=== PATIENT | female | born 1955 | race Caucasian/White ===

== ENCOUNTER 2019-10-01 07:50 | Emergency (ER) | payer MEDICARE, MEDICAID ==
[~2019-10-01] VITALS: Ht 157.5 cm; Wt 66.0 kg
[2019-10-01] MEDS ORDERED: CLON-457 PO (07:56)
[2019-10-01] MEDS ORDERED: LOPE1LIQ42 PO (07:56)
[2019-10-01 08:43] LABS: BASOPHILS % 0.7 % (0.0-2.0); EOSINOPHILS % 1.6 % (0.0-5.0); HEMATOCRIT. 36.7 % (36.0-48.0); HEMOGLOBIN. 12.5 g/dL (12.0-16.0); LYMPHOCYTES % 11.9 % (20.0-50.0); MEAN CORPUSCULAR HEMOGLOBIN 32.6 pg (28.0-32.0); MEAN CORPUSCULAR VOLUME 95.7 fL (81.0-99.0); MEAN PLATELET VOLUME 7.2 fl (7.4-10.4); MONOCYTES % 6.8 % (2.0-8.0); PLATELET 147 x1000/uL (130-400); RED BLOOD CELL COUNT 3.83 mill/uL (4.2-5.4); RED CELL DISTRIBUTION WIDTH 16.3 % (11.6-14.6)
[2019-10-01 08:48] LABS: CHLORIDE 101 mEq/L (98-107)
[2019-10-01 10:30] VITALS: BP 142/71
== END 2019-10-01 10:33 | disposition home or self-care (01) ==
LOC: ER 07:50
DX: R55 Syncope and collapse (principal); N18.6 End stage renal disease; I95.9 Hypotension, unspecified; Z99.2 Dependence on renal dialysis
CPT/HCPCS: 36415; 71045; 80053; 83605; 83880; 84484; 85025; 85379; 93005; 99285

== ENCOUNTER 2021-06-18 12:52 | Emergency (ER) | payer MEDICARE, MEDICAID ==
[~2021-06-18] VITALS: Ht 152.4 cm; Wt 62.0 kg
[~2021-06-18 12:52] MED LIST: CALC-1139 MT; CLON-457 PO; FERR-71 MT; LOPE1LIQ42 PO
[2021-06-18 13:36] LABS: EOSINOPHILS % 1.5 % (0.0-5.0); HEMATOCRIT. 28.6 % (36.0-48.0); HEMOGLOBIN. 9.9 g/dL (12.0-16.0); LYMPHOCYTES % 8.7 % (20.0-50.0); MEAN CORPUSCULAR HEMOGLOBIN 33.6 pg (28.0-32.0); MONOCYTES % 8.5 % (2.0-8.0); NEUTROPHILS % 80.3 % (40.0-76.0); PLATELET 137 x1000/uL (130-400); RED BLOOD CELL COUNT 2.95 mill/uL (4.2-5.4); RED CELL DISTRIBUTION WIDTH 16.6 % (11.6-14.6)
[2021-06-18] MEDS ORDERED: DEXTROSE 50% WATER 50ML SYRINGE IV ONE (14:30)
[2021-06-18] MEDS ORDERED: SODIUM BICARBONATE 8.4% 1 MEQ/ML 50ML SYR IV ONE (14:30)
[2021-06-18] MEDS ORDERED: ALBUTEROL (0.083%) 2.5MG/3ML NEB HHN ONE (14:30)
[2021-06-18] MEDS ORDERED: INSULIN REGULAR (HUMULIN R) 300UNITS/3ML VIAL IV ONE (14:30)
[2021-06-18] MEDS ORDERED: CALCIUM GLUCONATE 100MG/ML 10ML VIAL IV ONE (14:30)
[2021-06-18 17:18] LABS: HEPATITIS B SURFACE ANTIGEN NEGATIVE
[2021-06-18 18:55] VITALS: BP 133/50
== END 2021-06-18 21:50 | disposition left against medical advice (07) ==
LOC: ER 12:52 → CANBEDREQ 06-19 07:41
DX: E87.5 Hyperkalemia (principal); J90 Pleural effusion, not elsewhere classified; Z20.822 Contact with and (suspected) exposure to COVID-19; R03.0 Elevated blood-pressure reading, without diagnosis of hypertension; N18.6 End stage renal disease; Z99.2 Dependence on renal dialysis; Z91.15 Patient's noncompliance with renal dialysis
CPT/HCPCS: 36415; 71045; 80048; 85025; 86705; 86709; 86803; 87340; 87426; 93005; 94644; 96374; 96375; 99291; J0610; J1815; J3490

== ENCOUNTER 2023-02-10 14:05 | Inpatient (IN) | payer BC, MEDICAID, MEDICARE ==
[2023-02-10] VITALS (8 sets, daily range): BP systolic 130–158; BP diastolic 64–78; PULSE 57–69; RESP 14–23; TEMP 96
[~2023-02-10] VITALS: Ht 157.6 cm; Wt 65.0 kg
[~2023-02-10 14:05] MED LIST changes: -CLON-457 PO; +CLON-493 PO
[2023-02-10 15:25] LABS: BASOPHILS % 1.3 % (0.0-2.0); EOSINOPHILS % 1.3 % (0.0-5.0); HEMATOCRIT. 29.6 % (36.0-48.0); HEMOGLOBIN. 9.8 g/dL (12.0-16.0); LYMPHOCYTES % 11.1 % (20.0-50.0); MEAN CORPUSCULAR HEMOGLOBIN 31.5 pg (28.0-32.0); MEAN CORPUSCULAR VOLUME 95.3 fL (81.0-99.0); MEAN PLATELET VOLUME 8.7 fl (7.4-10.4); MONOCYTES % 9.4 % (2.0-8.0); NEUTROPHILS % 76.9 % (40.0-76.0); PLATELET 93 x1000/uL (130-400); RED BLOOD CELL COUNT 3.11 mill/uL (4.2-5.4); RED CELL DISTRIBUTION WIDTH 16.9 % (11.6-14.6); WHITE BLOOD COUNT 3.5 x1000/uL (4.5-11.0)
[2023-02-10 15:32] LABS: CHLORIDE 96 mEq/L (98-107); INDEX HEMOLYSI 1 (1-3); INDEX ICTERIC 1 (1-4); INDEX LIPEMIC 1 (1-3); POTASSIUM 3.8 mEq/L (3.5-5.1); SODIUM 134 mEq/L (136-145)
[2023-02-10 15:44] LABS: ALANINE AMINOTRANSFERASE 38 IU/L (13-61); ALBUMIN 2.8 g/dL (3.4-5.0); ASPARTATE AMINOTRANSFERASE 25 IU/L (15-37); BILIRUBIN TOTAL 0.9 mg/dL (0.1-1.0); CALCIUM 8.8 mg/dL (8.5-10.1); CARBON DIOXIDE 31 mEq/L (21-32); CREATININE 2.6 mg/dL (0.6-1.3); GLUCOSE 177 mg/dL (70-105); TROPONIN I HIGH SENSITIVITY 52 ng/L (<54); UREA NITROGEN BLOOD 25 mg/dL (7-21)
[2023-02-10] MEDS ORDERED: DEXAMETHASONE 4MG/ML 1ML VIAL IV ONE (19:45)
[2023-02-10] MEDS ORDERED: LEVETIRACETAM 1000MG PREMIX 100 ML IV ONE (19:45)
[2023-02-10] MEDS ORDERED: NICARDIPINE 40MG/200ML PREMIX 200 ML IV PRN (19:45)
[2023-02-10] MEDS ORDERED: HYDRALAZINE 20MG/ML VIAL IV ONE (19:45)
[2023-02-10] MEDS ORDERED: SUCCINYLCHOLINE CHLORIDE 200MG/10ML IV ONE (19:45)
[2023-02-10] MEDS ORDERED: ETOMIDATE 2MG/ML 10ML VIAL IV ONE (19:45)
[2023-02-10] MEDS ORDERED: LIDOCAINE HCL 1%/EPI 1:200,000 30 ML VIAL ONE (19:53)
[2023-02-10] MEDS ORDERED: BACITRACIN 14GM TUBE TOP ONE (19:53)
[2023-02-10] MEDS ORDERED: THROMBIN (BOVINE) 5000 UNITS/VIAL TOP ONE (19:53)
[2023-02-10] MEDS ORDERED: PROPOFOL 200MG/20ML VIAL IV ONE (21:51)
[2023-02-10] MEDS ORDERED: DEXT 5%/LACTATED RINGERS 1,000 ML IV SCH (22:45)
[2023-02-10] MEDS ORDERED: MORPHINE SULFATE 4 MG/ML CPJ (NOT FOR IM USE) IV PRN (22:45)
[2023-02-10] MEDS ORDERED: ONDANSETRON HCL 4MG/2ML INJ IV PRN (23:00)
[2023-02-10] MEDS ORDERED: NALOXONE HCL 0.4MG/ML VIAL IV PRN (23:00)
[2023-02-10] MEDS ORDERED: CLONIDINE 0.1MG TABLET PO PRN (23:00)
[2023-02-10] MEDS ORDERED: ACETAMINOPHEN 650MG/20.3ML UDC NG PRN (23:00)
[2023-02-10] MEDS ORDERED: IPRATROPIUM/ALBUTEROL 0.5-3(2.5)MG/3ML NEB HHN PRN (23:00)
[2023-02-10] MEDS ORDERED: PROPOFOL 10MG/ML 100ML 100 ML IV PRN (23:45)
[2023-02-10 23:55] LABS: BG BASE EXCESS 4.9 mmol/L (-2.0-2.0); BG CARBOXYHEMOGLOBIN 0.3 % (0.5-1.5); BG DEOXYHEMOGLOBIN 0.7 % (0.0-5.0); BG FRACTION INSPIRED OXYGEN 100; BG HCO3 ACT 25.8 mmol/L (22.0-26.0); BG METHEMOGLOBIN 0.1 % (0.0-1.5); BG OXYGEN SATURATION 99.3 % (92.0-98.5); BG OXYHEMOGLOBIN 98.9 % (94.0-97.0); BG PCO2 25.9 mmHg (35.0-45.0); BG PH 7.616 (7.350-7.450); BG PO2 387.2 mmHg (75.0-100.0); BG SAMPLE SITE RIGHT RADIAL; BG VENT MODE VENT - AC
[2023-02-11] VITALS (72 sets, daily range): BP systolic 88–157; BP diastolic 45–75; PULSE 48–66; RESP 4–27; TEMP 93.7–97.8; O2SAT 98
[2023-02-11] MEDS ORDERED: CEFAZOLIN 1000MG PREMIX 50 ML IV SCH ×2
[2023-02-11] MEDS: NICARDIPINE 100 MG in SODIUM CHLORIDE 0.9% 60 ML IV PRN (00:03)
[2023-02-11 02:29] LABS: BG BASE EXCESS 2.2 mmol/L (-2.0-2.0); BG CARBOXYHEMOGLOBIN 0.3 % (0.5-1.5); BG DEOXYHEMOGLOBIN 1.5 % (0.0-5.0); BG FRACTION INSPIRED OXYGEN 40; BG HCO3 ACT 26.2 mmol/L (22.0-26.0); BG METHEMOGLOBIN 0.1 % (0.0-1.5); BG OXYGEN SATURATION 98.5 % (92.0-98.5); BG OXYHEMOGLOBIN 98.1 % (94.0-97.0); BG PCO2 38.3 mmHg (35.0-45.0); BG PH 7.453 (7.350-7.450); BG PO2 153.5 mmHg (75.0-100.0); BG TOTAL HEMOGLOBIN 9.9 g/dL (12.0-18.0); BG TOTAL RESPIRATORY RATE 10 b/min; BG VENT MODE VENT - AC
[2023-02-11] MEDS ORDERED: NICARDIPINE 100 MG in SODIUM CHLORIDE 0.9% 60 ML IV PRN (03:00)
[2023-02-11 05:27] LABS: HEMATOCRIT. 26.4 % (36.0-48.0); HEMOGLOBIN. 8.8 g/dL (12.0-16.0); MEAN CORPUSCULAR HEMOGLOBIN 31.8 pg (28.0-32.0); MEAN CORPUSCULAR HGB CONC 33.3 g/dL (31.0-37.0); MEAN CORPUSCULAR VOLUME 95.5 fL (81.0-99.0); MEAN PLATELET VOLUME 8.7 fl (7.4-10.4); PLATELET 83 x1000/uL (130-400); RED BLOOD CELL COUNT 2.77 mill/uL (4.2-5.4); RED CELL DISTRIBUTION WIDTH 16.7 % (11.6-14.6); WHITE BLOOD COUNT 5.1 x1000/uL (4.5-11.0)
[2023-02-11 05:34] LABS: CHLORIDE 96 mEq/L (98-107); INDEX HEMOLYSI 1 (1-3); INDEX ICTERIC 1 (1-4); INDEX LIPEMIC 1 (1-3); POTASSIUM 4.5 mEq/L (3.5-5.1); SODIUM 133 mEq/L (136-145)
[2023-02-11 05:56] LABS: ALANINE AMINOTRANSFERASE 35 IU/L (13-61); ALBUMIN 2.5 g/dL (3.4-5.0); ASPARTATE AMINOTRANSFERASE 29 IU/L (15-37); BILIRUBIN TOTAL 0.7 mg/dL (0.1-1.0); CALCIUM 7.8 mg/dL (8.5-10.1); CARBON DIOXIDE 26 mEq/L (21-32); CHOLESTEROL 93 mg/dL (<200); CREATININE 3.2 mg/dL (0.6-1.3); GLUCOSE 304 mg/dL (70-105); HDL CHOLESTEROL 39 mg/dL (40-59); IRON 58 ug/dL (50-175); LDL CHOLESTEROL 48 mg/dL (5-100); PROTEIN TOTAL 6.2 g/dL (6.0-8.3); T4 FREE 1.31 ng/dL (0.76-1.46); TOTAL IRON BINDING CAPACITY 251 ug/dL (250-450); TRIGLYCERIDE 51 mg/dL (0-150); UREA NITROGEN BLOOD 36 mg/dL (7-21)
[2023-02-11 06:28] LABS: VITAMIN B12 SERUM 1670 pg/mL (211-911)
[2023-02-11] MEDS ORDERED: DEXTROSE 50% WATER 50ML SYRINGE IV PRN (06:30)
[2023-02-11 06:31] LABS: DIFFERENTIAL COMMENT 1
[2023-02-11] MEDS: BLOOD SUGAR DIAGNOSTIC STRIP TEST SCH ×4 (06:37→23:57)
[2023-02-11] MEDS ORDERED: INSULIN LISPRO 100 UNITS/ML SUBCUT SCH (07:00)
[2023-02-11] MEDS ORDERED: SODIUM CHLORIDE 0.9% 1,000 ML IV SCH (07:45)
[2023-02-11] MEDS: PANTOPRAZOLE SODIUM 40 MG/VIAL IV SCH (08:23)
[2023-02-11] MEDS: LEVETIRACETAM 500MG PREMIX 100 ML IV SCH ×2 (08:23→21:20)
[2023-02-11] MEDS ORDERED: LEVETIRACETAM 500MG PREMIX 100 ML IV SCH (09:00)
[2023-02-11] MEDS ORDERED: INSULIN GLARGINE 100 UNITS/ML SUBCUT SCH (10:00)
[2023-02-11] MEDS ORDERED: THROMBIN (BOVINE) 5000 UNITS/VIAL TOP ONE (10:53)
[2023-02-11] MEDS ORDERED: GENTAMICIN SULF 40MG/ML 2ML VIAL ONE (10:53)
[2023-02-11] MEDS ORDERED: LIDOCAINE HCL 1%/EPI 1:200,000 30 ML VIAL ONE (10:53)
[2023-02-11] MEDS ORDERED: BACITRACIN 14GM TUBE TOP ONE (10:54)
[2023-02-11] MEDS: DEXT 5%/0.9% NACL 1,000 ML IV SCH (11:34)
[2023-02-11] MEDS: METRONIDAZOLE 500 MG PREMIX 100 ML IV SCH ×2 (11:55→20:12)
[2023-02-11] MEDS: INSULIN LISPRO 100 UNITS/ML SUBCUT SCH ×2 (12:00→18:07)
[2023-02-11] MEDS ORDERED: VANCOMYCIN 1.25GM PMX (XELLIA) 250 ML IV NR (12:00)
[2023-02-11] MEDS ORDERED: CEFEPIME 1,000 MG in DEXTROSE 5% WATER 50 ML IV SCH (12:00)
[2023-02-11] MEDS ORDERED: VECURONIUM BROMIDE 10 MG/VIAL IV ONE (12:05)
[2023-02-11] MEDS ORDERED: PROPOFOL 200MG/20ML VIAL IV ONE (12:17)
[2023-02-11 12:54] LABS: HEPATITIS A AB IGM NEGATIVE (Negative); HEPATITIS B CORE AB IGM NEGATIVE (Negative); HEPATITIS B SURFACE ANTIGEN NEGATIVE (Negative); HEPATITIS C AB NON REACTIVE (Neg) (Negative)
[2023-02-11] MEDS ORDERED: TRANEXAMIC ACID 10 ML ONE (13:01)
[2023-02-11 13:10] LABS: HEMATOCRIT. 24.7 % (36.0-48.0); HEMOGLOBIN. 8.1 g/dL (12.0-16.0); MEAN CORPUSCULAR HEMOGLOBIN 31.5 pg (28.0-32.0); MEAN CORPUSCULAR HGB CONC 32.9 g/dL (31.0-37.0); MEAN CORPUSCULAR VOLUME 95.6 fL (81.0-99.0); MEAN PLATELET VOLUME 8.8 fl (7.4-10.4); PLATELET 96 x1000/uL (130-400); RED BLOOD CELL COUNT 2.58 mill/uL (4.2-5.4); RED CELL DISTRIBUTION WIDTH 16.6 % (11.6-14.6); WHITE BLOOD COUNT 7.9 x1000/uL (4.5-11.0)
[2023-02-11 13:21] LABS: DIFFERENTIAL COMMENT 1
[2023-02-11 13:59] LABS: INR 1.4; PARTIAL THROMBOPLASTIN TIME 31.9 sec (23.4-31.0); PROTHROMBIN TIME 14.5 sec (9.6-11.0)
[2023-02-11 15:02] LABS: LACTIC ACID 3.1 mmol/L (0.4-2.0)
[2023-02-11 16:01] LABS: PLATELET ESTIMATE DECREASED
[2023-02-11 16:07] LABS: PLATELET ESTIMATE DECREASED
[2023-02-11 17:27] LABS: ALANINE AMINOTRANSFERASE 13 IU/L (10-49); ASPARTATE AMINOTRANSFERASE 24 IU/L (<34); BILIRUBIN TOTAL 0.4 mg/dL (0.1-1.0); CALCIUM 7.8 mg/dL (8.7-10.4); CARBON DIOXIDE 22 mEq/L (21-32); CHLORIDE 105 mEq/L (98-107); CREATININE 3.6 mg/dL (0.6-1.0); GLUCOSE 133 mg/dL (70-105); POTASSIUM 4.7 mEq/L (3.5-5.1); PROTEIN TOTAL 5.2 g/dL (6.0-8.3); SODIUM 144 mEq/L (136-145); UREA NITROGEN BLOOD 38 mg/dL (9-23)
[2023-02-12] VITALS (93 sets, daily range): BP systolic 76–159; BP diastolic 19–109; PULSE 61–82; RESP 9–35; TEMP 97.5–99
[2023-02-12] MEDS ORDERED: CEFAZOLIN 1000MG PREMIX 50 ML IV SCH
[2023-02-12] MEDS: INSULIN LISPRO 100 UNITS/ML SUBCUT SCH ×4 (00:08→17:06)
[2023-02-12] MEDS: METRONIDAZOLE 500 MG PREMIX 100 ML IV SCH ×3 (04:18→22:12)
[2023-02-12 04:50] LABS: HEMATOCRIT. 25.4 % (36.0-48.0); HEMOGLOBIN. 8.3 g/dL (12.0-16.0); MEAN CORPUSCULAR HEMOGLOBIN 31.8 pg (28.0-32.0); MEAN CORPUSCULAR HGB CONC 32.8 g/dL (31.0-37.0); MEAN CORPUSCULAR VOLUME 96.8 fL (81.0-99.0); MEAN PLATELET VOLUME 8.7 fl (7.4-10.4); PLATELET 152 x1000/uL (130-400); RED BLOOD CELL COUNT 2.62 mill/uL (4.2-5.4); RED CELL DISTRIBUTION WIDTH 16.7 % (11.6-14.6)
[2023-02-12 05:08] LABS: ALANINE AMINOTRANSFERASE 9 IU/L (10-49); ALBUMIN 3.3 g/dL (3.2-4.8); ASPARTATE AMINOTRANSFERASE 19 IU/L (<34); BILIRUBIN TOTAL 0.4 mg/dL (0.1-1.0); CALCIUM 8.1 mg/dL (8.7-10.4); CARBON DIOXIDE 25 mEq/L (21-32); CHLORIDE 101 mEq/L (98-107); CREATINE KINASE 56 IU/L (34-145); CREATININE 3.7 mg/dL (0.6-1.0); GLUCOSE 115 mg/dL (70-105); PHOSPHORUS 5.8 mg/dL (2.5-4.9); POTASSIUM 5.1 mEq/L (3.5-5.1); PROTEIN TOTAL 5.5 g/dL (6.0-8.3); SODIUM 137 mEq/L (136-145); UREA NITROGEN BLOOD 39 mg/dL (9-23)
[2023-02-12 06:27] LABS: DIFFERENTIAL COMMENT 1
[2023-02-12] MEDS: BLOOD SUGAR DIAGNOSTIC STRIP TEST SCH ×3 (06:33→17:58)
[2023-02-12] MEDS: DEXT 5%/0.9% NACL 1,000 ML IV SCH (06:43)
[2023-02-12] MEDS ORDERED: PHENYTOIN SODIUM 100MG/2ML VIAL IV NR (06:45)
[2023-02-12] MEDS: PANTOPRAZOLE SODIUM 40 MG/VIAL IV SCH (08:01)
[2023-02-12] MEDS: LEVETIRACETAM 500MG PREMIX 100 ML IV SCH ×2 (08:02→21:05)
[2023-02-12 10:18] LABS: ANISOCYTOSIS 1+; PLATELET ESTIMATE NORMAL
[2023-02-12] MEDS ORDERED: NOREPINEPHRINE 8 MG in DEXT 5% WATER 242 ML IV PRN (13:30)
[2023-02-12] MEDS ORDERED: LORAZEPAM 2MG/ML CPJ IV PRN (13:30)
[2023-02-12] MEDS ORDERED: NOREPINEPHRINE 8MG/250ML PMX 250ML IV PRN (13:45)
[2023-02-12] MEDS: CEFEPIME 1,000 MG in DEXTROSE 5% WATER 50 ML IV SCH (14:26)
[2023-02-12] MEDS: PHENYTOIN SODIUM 100MG/2ML VIAL IV SCH ×2 (14:27→22:12)
[2023-02-12] MEDS ORDERED: EPOETIN ALFA 4000UNITS/ML VIAL SUBCUT SCH (21:00)
[2023-02-12] MEDS ORDERED: EPOETIN ALFA-EPBX 4,000 UNIT/ML VIAL SUBCUT SCH (21:00)
[2023-02-12] MEDS: NICARDIPINE 100 MG in SODIUM CHLORIDE 0.9% 60 ML IV PRN (21:05)
[2023-02-13] VITALS (71 sets, daily range): BP systolic 119–143; BP diastolic 48–64; PULSE 72–84; RESP 10–14; TEMP 97.9–100.8
[2023-02-13] MEDS: BLOOD SUGAR DIAGNOSTIC STRIP TEST SCH ×5 (00:02→23:32)
[2023-02-13] MEDS: INSULIN LISPRO 100 UNITS/ML SUBCUT SCH ×5 (00:17→23:34)
[2023-02-13] MEDS: METRONIDAZOLE 500 MG PREMIX 100 ML IV SCH (05:36)
[2023-02-13] MEDS: DEXT 5%/0.9% NACL 1,000 ML IV SCH (05:36)
[2023-02-13] MEDS: PHENYTOIN SODIUM 100MG/2ML VIAL IV SCH ×3 (05:36→22:08)
[2023-02-13 05:44] LABS: HEMATOCRIT. 24.2 % (36.0-48.0); HEMOGLOBIN. 7.9 g/dL (12.0-16.0); MEAN CORPUSCULAR HEMOGLOBIN 32.2 pg (28.0-32.0); MEAN CORPUSCULAR HGB CONC 32.6 g/dL (31.0-37.0); MEAN CORPUSCULAR VOLUME 98.7 fL (81.0-99.0); PLATELET 135 x1000/uL (130-400); RED BLOOD CELL COUNT 2.45 mill/uL (4.2-5.4); RED CELL DISTRIBUTION WIDTH 17.5 % (11.6-14.6); WHITE BLOOD COUNT 10.2 x1000/uL (4.5-11.0)
[2023-02-13 06:07] LABS: DIFFERENTIAL COMMENT 1
[2023-02-13 06:09] LABS: CALCIUM 8.2 mg/dL (8.7-10.4); CARBON DIOXIDE 26 mEq/L (21-32); CHLORIDE 105 mEq/L (98-107); CREATININE 2.9 mg/dL (0.6-1.0); GLUCOSE 171 mg/dL (70-105); PHOSPHORUS 4.8 mg/dL (2.5-4.9); POTASSIUM 4.8 mEq/L (3.5-5.1); SODIUM 141 mEq/L (136-145); UREA NITROGEN BLOOD 26 mg/dL (9-23)
[2023-02-13] MEDS ORDERED: LEVETIRACETAM 500MG PREMIX 100 ML IV NR (06:15)
[2023-02-13] MEDS: PANTOPRAZOLE SODIUM 40 MG/VIAL IV SCH (08:08)
[2023-02-13] MEDS: LEVETIRACETAM 500MG PREMIX 100 ML IV SCH ×2 (08:08→20:29)
[2023-02-13 08:46] LABS: BG BASE EXCESS -0.7 mmol/L (-2.0-2.0); BG CARBOXYHEMOGLOBIN 0.2 % (0.5-1.5); BG FRACTION INSPIRED OXYGEN 40; BG HCO3 ACT 23.6 mmol/L (22.0-26.0); BG METHEMOGLOBIN 0.2 % (0.0-1.5); BG OXYHEMOGLOBIN 98.6 % (94.0-97.0); BG PCO2 37.7 mmHg (35.0-45.0); BG PH 7.415 (7.350-7.450); BG PO2 168.7 mmHg (75.0-100.0); BG SAMPLE SITE ALINE; BG TOTAL HEMOGLOBIN 9.1 g/dL (12.0-18.0); BG TOTAL RESPIRATORY RATE 11 b/min; BG VENT MODE VENT - AC
[2023-02-13] MEDS: CEFEPIME 1,000 MG in DEXTROSE 5% WATER 50 ML IV SCH (14:50)
[2023-02-13 16:20] LABS: ANISOCYTOSIS 1+; PLATELET ESTIMATE NORMAL
[2023-02-13] MEDS: METRONIDAZOLE 500MG TABLET PO SCH (20:30)
[2023-02-14] VITALS (43 sets, daily range): BP systolic 106–137; BP diastolic 41–67; PULSE 62–77; RESP 9–15; TEMP 97.5–99
[2023-02-14] MEDS: DEXT 5%/0.9% NACL 1,000 ML IV SCH (04:49)
[2023-02-14] MEDS: PHENYTOIN SODIUM 100MG/2ML VIAL IV SCH ×2 (05:13→14:03)
[2023-02-14] MEDS: BLOOD SUGAR DIAGNOSTIC STRIP TEST SCH ×2 (05:19→12:25)
[2023-02-14] MEDS: INSULIN LISPRO 100 UNITS/ML SUBCUT SCH ×2 (05:22→12:30)
[2023-02-14 05:27] LABS: HEMATOCRIT. 21.7 % (36.0-48.0); MEAN CORPUSCULAR HEMOGLOBIN 31.6 pg (28.0-32.0); MEAN CORPUSCULAR HGB CONC 32.2 g/dL (31.0-37.0); MEAN CORPUSCULAR VOLUME 98.2 fL (81.0-99.0); MEAN PLATELET VOLUME 8.1 fl (7.4-10.4); PLATELET 111 x1000/uL (130-400); RED BLOOD CELL COUNT 2.21 mill/uL (4.2-5.4); RED CELL DISTRIBUTION WIDTH 17.5 % (11.6-14.6); WHITE BLOOD COUNT 7.4 x1000/uL (4.5-11.0)
[2023-02-14 05:58] LABS: CALCIUM 8.1 mg/dL (8.7-10.4); POTASSIUM 4.6 mEq/L (3.5-5.1)
[2023-02-14 06:18] LABS: CREATININE 3.9 mg/dL (0.6-1.0)
[2023-02-14 06:47] LABS: DIFFERENTIAL COMMENT 1
[2023-02-14] MEDS: METRONIDAZOLE 500MG TABLET PO SCH (09:28)
[2023-02-14] MEDS: PANTOPRAZOLE SODIUM 40 MG/VIAL IV SCH (09:28)
[2023-02-14] MEDS: LEVETIRACETAM 500MG PREMIX 100 ML IV SCH (09:28)
[2023-02-14 12:39] LABS: HEPATITIS A AB IGM NEGATIVE (Negative); HEPATITIS B CORE AB IGM NEGATIVE (Negative); HEPATITIS B SURFACE ANTIGEN NEGATIVE (Negative); HEPATITIS C AB NON REACTIVE (Neg) (Negative)
[2023-02-14 13:38] LABS: ANISOCYTOSIS 1+; NUCLEATED RED BLOOD CELLS 1 /100 WBC; PLATELET ESTIMATE SLIGHTLY DECREASED
[2023-02-14] MEDS ORDERED: SODIUM CHLORIDE 0.45% 1,000 ML IV SCH (14:00)
[2023-02-14] MEDS: CEFEPIME 1,000 MG in DEXTROSE 5% WATER 50 ML IV SCH (14:03)
[2023-02-14] MEDS ORDERED: DOPAMINE 400MG/250ML PREMIX 250 ML IV ONE (14:54)
[2023-02-14] MEDS ORDERED: DOPAMINE 400MG/250ML PREMIX 250 ML IV PRN (14:54)
[2023-02-14] MEDS ORDERED: EPINEPHRINE 10 MG in SODIUM CHLORIDE 0.9% 240 ML IV PRN (15:30)
[2023-02-14] MEDS ORDERED: EPOETIN ALFA 4000UNITS/ML VIAL SUBCUT SCH (21:00)
== END 2023-02-14 18:20 | DRG 25 ==
LOC: ER 15:46 → MICUSO 19:45 → EDBEDREQTM 20:21 → EDBEDREQ 20:21
PROVIDERS: ADMIT Internal Medicine; ATTEND Internal Medicine
PROC: 00H032Z Insertion of Monitoring Device into Brain, Percutaneous Approach (ICD-10-PCS; 2023-02-10)
PROC: 00C40ZZ Extirpation of Matter from Intracranial Subdural Space, Open Approach (ICD-10-PCS; 2023-02-10)
PROC: 4A103BD Monitoring of Intracranial Pressure, Percutaneous Approach (ICD-10-PCS; 2023-02-10)
PROC: 5A1945Z Respiratory Ventilation, 24-96 Consecutive Hours (ICD-10-PCS; 2023-02-10)
PROC: 0BH17EZ Insertion of Endotracheal Airway into Trachea, Via Natural or Artificial Opening (ICD-10-PCS; 2023-02-10)
PROC: 00C70ZZ Extirpation of Matter from Cerebral Hemisphere, Open Approach (ICD-10-PCS; principal; 2023-02-11)
PROC: 00H032Z Insertion of Monitoring Device into Brain, Percutaneous Approach (ICD-10-PCS; 2023-02-11)
PROC: 4A103BD Monitoring of Intracranial Pressure, Percutaneous Approach (ICD-10-PCS; 2023-02-11)
PROC: 30233K1 Transfusion of Nonautologous Frozen Plasma into Peripheral Vein, Percutaneous Approach (ICD-10-PCS; 2023-02-11)
PROC: 30233R1 Transfusion of Nonautologous Platelets into Peripheral Vein, Percutaneous Approach (ICD-10-PCS; 2023-02-11)
PROC: 5A1D70Z Performance of Urinary Filtration, Intermittent, Less than 6 Hours Per Day (ICD-10-PCS; 2023-02-12)
PROC: 30233N1 Transfusion of Nonautologous Red Blood Cells into Peripheral Vein, Percutaneous Approach (ICD-10-PCS; 2023-02-14)
DX: S06.5X0A Traumatic subdural hemorrhage without loss of consciousness, initial encounter (principal); A41.9 Sepsis, unspecified organism; G92.8 Other toxic encephalopathy; N17.0 Acute kidney failure with tubular necrosis; N18.6 End stage renal disease; J69.0 Pneumonitis due to inhalation of food and vomit; J96.00 Acute respiratory failure, unspecified whether with hypoxia or hypercapnia; U07.1 COVID-19; E87.1 Hypo-osmolality and hyponatremia; E44.0 Moderate protein-calorie malnutrition; I16.1 Hypertensive emergency; I12.0 Hypertensive chronic kidney disease with stage 5 chronic kidney disease or end stage renal disease; S06.350A Traumatic hemorrhage of left cerebrum without loss of consciousness, initial encounter; S06.6X0A Traumatic subarachnoid hemorrhage without loss of consciousness, initial encounter; Z66 Do not resuscitate; E11.22 Type 2 diabetes mellitus with diabetic chronic kidney disease; D63.8 Anemia in other chronic diseases classified elsewhere; D69.6 Thrombocytopenia, unspecified; E78.5 Hyperlipidemia, unspecified; E11.65 Type 2 diabetes mellitus with hyperglycemia; E83.39 Other disorders of phosphorus metabolism; F03.90 Unspecified dementia, unspecified severity, without behavioral disturbance, psychotic disturbance, mood disturbance, and anxiety; Z68.26 Body mass index [BMI] 26.0-26.9, adult; Z86.73 Personal history of transient ischemic attack (TIA), and cerebral infarction without residual deficits; Z99.2 Dependence on renal dialysis; Z79.899 Other long term (current) drug therapy; W07.XXXA Fall from chair, initial encounter; Y93.89 Activity, other specified; Y92.89 Other specified places as the place of occurrence of the external cause; Y99.8 Other external cause status; S81.802A Unspecified open wound, left lower leg, initial encounter; S91.002A Unspecified open wound, left ankle, initial encounter
CPT/HCPCS: 36415; 36600; 71045; 76700; 76770; 80048; 80053; 80061; 80185; 80202; 82375; 82550; 82607; 82746; 82805; 82962; 83036; 83540; 83550; 83605; 83735; 84100; 84145; 84439; 84443; 84484; 85025; 85379; 85384; 86705; 86709; 86850; 86900; 86920; 86927; 87340; 87426; 88304; 90935; 93005; 93970; 94003; 99291; C9113; J0360; J0690; J0692; J0885; J1100; J1165; J1265; J1580; J1815; J1953; J2060; J2270; J2704; J3370; J3490; J7042; J7050; J7060; J7120; P9016; P9017; P9034; C1713